=== PATIENT | female | born 1975 | race Caucasian/White ===

== ENCOUNTER 2016-12-31 01:22 | Emergency (ER) | payer MEDICARE, MEDICAID ==
[~2016-12-31] VITALS: Ht 175.3 cm; Wt 99.8 kg
[~2016-12-31 01:22] MED LIST: AVPAK AZITHROM250 MG PO; CITALOPRAM40 M1 PO; INVEGA6 MG PO; KEFLEX 500MG.500 MG PO; NORCO 325 MG-51 TAB PO; PAXIL20 MG PO; PERCOCET1 TAB PO; SEPTRA DS 800 M1 TAB PO; TRAZODONE HCL50 MG PO; VICODIN 5/500 T1 TAB PO; VOLTAREN75 MG PO
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
[2016-12-31] MEDS ORDERED: KEFLEX 500MG.500 MG PO (04:36)
[2016-12-31 04:43] VITALS: BP 130/73
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
--- OUTSIDE RECORDS SUMMARY | 2016-12-31 16:43 | External Medical Summary Rpt | CCD ---
Demographics Preferred Language Bengali Marital Status Unknown Restoration Affiliation Unknown Race Unknown Ethnic Group Unknown Author Author , FARAZ RUTH Address Unknown Phone Immunization Unable to retrieve immunization data due to connection failure with Immunization Registry. Please try again later.
--- OUTSIDE RECORDS SUMMARY | 2016-12-31 16:43 | External Medical Summary Rpt | CCD ---
Demographics Preferred Language Macedonian Marital Status Unknown Restorationist Affiliation Unknown Race Unknown Ethnic Group Unknown Author Author , FARAZ RUTH Address Unknown Phone Immunization Unable to retrieve immunization data due to connection failure with Immunization Registry. Please try again later.
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
--- OUTSIDE RECORDS SUMMARY | 2016-12-31 16:44 | External Medical Summary Rpt ---
Author Author [employer], [employer] Organization [employer] Address Unknown Phone Unavailable
== END 2016-12-31 04:44 | disposition home or self-care (01) ==
LOC: ER 01:22
PROC: 0HQ1XZZ Repair Face Skin, External Approach (ICD-10-PCS; principal; 2016-12-31)
DX: S05.01XA Injury of conjunctiva and corneal abrasion without foreign body, right eye, initial encounter (principal); Z23 Encounter for immunization; S01.112A Laceration without foreign body of left eyelid and periocular area, initial encounter; W01.190A Fall on same level from slipping, tripping and stumbling with subsequent striking against furniture, initial encounter; Y92.019 Unspecified place in single-family (private) house as the place of occurrence of the external cause; F10.10 Alcohol abuse, uncomplicated